=== PATIENT | female | born 1995 ===

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

== ENCOUNTER 2018-12-23 20:11 | Emergency (ER) | payer SELFPAY | END 2018-12-23 22:26 | disposition left against medical advice (07) | LOC: ED 20:11 ==